=== PATIENT | male | born 1975 | race Caucasian/White ===

== ENCOUNTER 2020-12-09 13:21 | Emergency (ER) | payer OTHER ==
[2020-12-09 13:30] VITALS: TEMP 98.1
[2020-12-09] MEDS ORDERED: MORPHINE SULFATE 4 MG/ML SYRINGE IM STA (13:41)
[2020-12-09] MEDS ORDERED: DIPH,PERTUS(ACELL)TETVAC-LF 0.5 ML VIAL IM ONE (13:41)
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
--- NOTE | 2020-12-09 14:37 | XR ---
EXAMINATION TYPE: XR shoulder complete LT DATE OF EXAM: 12/09/2020 COMPARISON: NONE HISTORY: Pain TECHNIQUE: 3 views FINDINGS: Glenohumeral joint is intact. There is malalignment of the AC joint. There is 11 mm inferio r displacement of the acromion. There is 14 mm nondisplaced chip fracture of the inferior clavicle at the AC joint. There is widening of the coracoclavicular space. IMPRESSION: There is ligamentous tear at the AC joint with chip fracture of the clavicle.
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
[2020-12-09 14:54] VITALS: BP 114/81; PULSE 60; RESP 18
== END 2020-12-09 15:38 | disposition home or self-care (01) ==
LOC: EC 13:21
DX: S42.032A Displaced fracture of lateral end of left clavicle, initial encounter for closed fracture (principal); R07.89 Other chest pain; F17.200 Nicotine dependence, unspecified, uncomplicated; F12.90 Cannabis use, unspecified, uncomplicated; V40.0XXA Car driver injured in collision with pedestrian or animal in nontraffic accident, initial encounter
CPT/HCPCS: 99284; 96372; 90471; 73030; 71046; 72125; 70450; 90715; J2270

== ENCOUNTER → 2022-07-21 | Outpatient (CLI) | payer OTHER ==
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
== END | disposition home or self-care (01) ==
LOC: RADMRIMAIN 18:39
PROVIDERS: ATTEND Orthopaedic Surgery
DX: M19.012 Primary osteoarthritis, left shoulder (principal)